=== PATIENT | male | born 1990 | race Caucasian/White ===

== ENCOUNTER 2017-12-14 10:28 | Emergency (ER) | payer SELFPAY ==
[~2017-12-14] VITALS: Ht 152.4 cm; Wt 60.3 kg
[2017-12-14 10:30] VITALS: BP 146/84; Ht 152.4 cm; Wt 60.3 kg
== END 2017-12-14 10:59 | disposition home or self-care (01) ==
LOC: ED 10:28
DX: K04.7 Periapical abscess without sinus (principal)
CPT/HCPCS: J2001

== ENCOUNTER 2019-05-07 12:05 | Emergency (ER) | payer SELFPAY ==
[~2019-05-07] VITALS: Ht 149.9 cm; Wt 62.1 kg
[2019-05-07 12:10] VITALS: Ht 149.9 cm; Wt 62.1 kg
[2019-05-07 12:45] VITALS: BP 135/75
== END 2019-05-07 12:45 | disposition home or self-care (01) ==
LOC: ED 12:05
DX: S31.21XA Laceration without foreign body of penis, initial encounter (principal); X58.XXXA Exposure to other specified factors, initial encounter; Y93.89 Activity, other specified; Y92.89 Other specified places as the place of occurrence of the external cause; Y99.8 Other external cause status